=== PATIENT | female | born 1935 | race Caucasian/White ===

== ENCOUNTER 2018-02-06 02:12 | Outpatient (RCR) | payer MEDICARE, SELFPAY ==
[2018-02-06] MEDS: Normal Saline Flush 10 ML SYR IVP (10:15)
[2018-02-06 10:31] LABS: Abs Immature Grans 0.08 k/cumm (0.0-0.09); Absolute Basophil Count 0.06 k/cumm (0.0-0.2); Absolute Eosinophil Count 0.05 k/cumm (0.0-0.7); Absolute Lymphocyte Count 1.09 k/cumm (1.2-3.4); Absolute Monocyte Count 0.44 k/cumm (0.11-0.7); Absolute Neutrophil Count 10.82 k/cumm (1.2-6.7); Basophils % 0.5; Eosinophils % 0.4; HCT 41.2 % (36.0-46.0); Immature Grans % 0.6; Lymphocytes % 8.7; Mean Corp. HGB Concentration 31.6 g/dL (32.0-36.0); Mean Corpuscular Hemoglobin 28.9 pg (27.0-33.0); Mean Corpuscular Volume 91.6 fL (80-95); Mean Platelet Volume 11.1 fL (8.0-11.0); Monocytes % 3.5; Neutrophils % 86.3; Platelet Count 267 x1000/uL (130-400); White Blood Cell Count 12.54 k/cumm (4.4-10.8)
[2018-02-06 10:52] LABS: ALT 12 U/L (12-78); AST 11 U/L (15-37); Albumin 3.3 g/dL (3.4-5.0); Alkaline Phosphatase 40 U/L (46-116); Anion Gap 6.9 mmol/L (3-11); BUN 33 mg/dL (7-18); Bilirubin, Total 0.3 mg/dL (0.2-1.0); CO2 28.1 mmol/L (21.0-32.0); CREATININE 1.49 mg/dL (0.55-1.02); Calcium 9.1 mg/dL (8.5-10.1); Chloride 103 mmol/L (98-107); Estimated GFR 33.67 (mL/min/1.73m2); Glucose 111 mg/dL (70-100); Potassium 4.5 mmol/L (3.5-5.1); Sodium 138 mmol/L (136-145); T4 5.8 ug/dL (4.5-12.5); TSH 0.54 uIU/mL (0.358-3.74); Total Protein 6.7 g/dL (6.4-8.2)
== END 2018-02-14 ==
LOC: INF 02:12
PROVIDERS: PCP Family Medicine; Visit Provider Internal Medicine Medical Oncology
DX: C34.91 Malignant neoplasm of unspecified part of right bronchus or lung (principal); E03.2 Hypothyroidism due to medicaments and other exogenous substances; Z45.2 Encounter for adjustment and management of vascular access device
CPT/HCPCS: 36591; 80053; 84436; 84443; 85025

== ENCOUNTER 2018-02-27 01:55 | Outpatient (RCR) | payer MEDICARE, SELFPAY ==
[2018-02-27] MEDS: Normal Saline Flush 10 ML SYR IVP (07:35)
[2018-02-27 07:54] LABS: Abs Immature Grans 0.12 k/cumm (0.0-0.09); Absolute Eosinophil Count 0.12 k/cumm (0.0-0.7); Absolute Lymphocyte Count 3.73 k/cumm (1.2-3.4); Absolute Monocyte Count 0.85 k/cumm (0.11-0.7); Absolute Neutrophil Count 5.69 k/cumm (1.2-6.7); Basophils % 0.9; Eosinophils % 1.1; HCT 40.8 % (36.0-46.0); HGB 12.8 g/dL (12.0-15.5); Immature Grans % 1.1; Lymphocytes % 35.2; Mean Corp. HGB Concentration 31.4 g/dL (32.0-36.0); Mean Corpuscular Hemoglobin 28.8 pg (27.0-33.0); Mean Corpuscular Volume 91.9 fL (80-95); Mean Platelet Volume 10.4 fL (8.0-11.0); Neutrophils % 53.7; Platelet Count 287 x1000/uL (130-400); RBC 4.44 m/cumm (4.00-5.20); RBC Distribution Width 16.9 % (11.7-14.6); White Blood Cell Count 10.61 k/cumm (4.4-10.8)
[2018-02-27 08:13] LABS: ALT 15 U/L (12-78); AST 11 U/L (15-37); Albumin 3.3 g/dL (3.4-5.0); Alkaline Phosphatase 49 U/L (46-116); Anion Gap 6.7 mmol/L (3-11); BUN 27 mg/dL (7-18); Bilirubin, Total 0.2 mg/dL (0.2-1.0); CO2 27.3 mmol/L (21.0-32.0); CREATININE 1.51 mg/dL (0.55-1.02); Calcium 9.2 mg/dL (8.5-10.1); Chloride 105 mmol/L (98-107); Estimated GFR 33.16 (mL/min/1.73m2); Glucose 98 mg/dL (70-100); Potassium 4.6 mmol/L (3.5-5.1); Sodium 139 mmol/L (136-145); TSH 0.94 uIU/mL (0.358-3.74); Total Protein 6.4 g/dL (6.4-8.2)
== END 2018-03-16 23:59 | disposition home or self-care (01) ==
LOC: INF 01:55
PROVIDERS: PCP Family Medicine; Visit Provider Internal Medicine Medical Oncology
DX: C34.91 Malignant neoplasm of unspecified part of right bronchus or lung (principal); E03.2 Hypothyroidism due to medicaments and other exogenous substances; Z45.2 Encounter for adjustment and management of vascular access device
CPT/HCPCS: 36591; 80053; 84436; 84443; 85025

== ENCOUNTER 2018-04-10 00:54 | Outpatient (RCR) | payer MEDICARE, SELFPAY ==
[2018-03-20] MEDS: Normal Saline Flush 10 ML SYR IVP (10:40)
[2018-03-20 10:57] LABS: Absolute Basophil Count 0.06 k/cumm (0.0-0.2); Absolute Eosinophil Count 0.04 k/cumm (0.0-0.7); Absolute Lymphocyte Count 1.26 k/cumm (1.2-3.4); Absolute Monocyte Count 0.46 k/cumm (0.11-0.7); Basophils % 0.5; Eosinophils % 0.3; HCT 40.2 % (36.0-46.0); HGB 12.7 g/dL (12.0-15.5); Immature Grans % 0.8; Lymphocytes % 9.8; Mean Corp. HGB Concentration 31.6 g/dL (32.0-36.0); Mean Corpuscular Hemoglobin 29.1 pg (27.0-33.0); Monocytes % 3.6; Platelet Count 288 x1000/uL (130-400); RBC 4.37 m/cumm (4.00-5.20); RBC Distribution Width 16.5 % (11.7-14.6); White Blood Cell Count 12.86 k/cumm (4.4-10.8)
[2018-03-20 10:58] LABS: Absolute Neutrophil Count 10.93 k/cumm (1.2-6.7)
[2018-03-20 11:18] LABS: ALT 16 U/L (12-78); AST 11 U/L (15-37); Albumin 3.3 g/dL (3.4-5.0); Alkaline Phosphatase 47 U/L (46-116); Anion Gap 7.6 mmol/L (3-11); BUN 27 mg/dL (7-18); Bilirubin, Total 0.3 mg/dL (0.2-1.0); CO2 27.4 mmol/L (21.0-32.0); CREATININE 1.27 mg/dL (0.55-1.02); Chloride 103 mmol/L (98-107); Estimated GFR 40.49 (mL/min/1.73m2); Glucose 102 mg/dL (70-100); Potassium 4.9 mmol/L (3.5-5.1); Sodium 138 mmol/L (136-145); TSH 0.72 uIU/mL (0.358-3.74); Total Protein 6.5 g/dL (6.4-8.2)
[2018-03-20 11:28] LABS: T4 5.6 ug/dL (4.5-12.5)
[2018-04-10] MEDS: Normal Saline Flush 10 ML SYR IVP (11:30)
[2018-04-10 11:39] LABS: Absolute Basophil Count 0.07 k/cumm (0.0-0.2); Absolute Eosinophil Count 0.04 k/cumm (0.0-0.7); Absolute Lymphocyte Count 1.32 k/cumm (1.2-3.4); Absolute Monocyte Count 0.51 k/cumm (0.11-0.7); Basophils % 0.6; Eosinophils % 0.4; HGB 12.7 g/dL (12.0-15.5); Immature Grans % 0.9; Lymphocytes % 11.9; Mean Corp. HGB Concentration 31.8 g/dL (32.0-36.0); Mean Corpuscular Hemoglobin 29.3 pg (27.0-33.0); Mean Corpuscular Volume 92.2 fL (80-95); Monocytes % 4.6; Neutrophils % 81.6; Platelet Count 309 x1000/uL (130-400); RBC 4.34 m/cumm (4.00-5.20); RBC Distribution Width 16.4 % (11.7-14.6); White Blood Cell Count 11.13 k/cumm (4.4-10.8)
[2018-04-10 11:43] LABS: Absolute Neutrophil Count 9.08 k/cumm (1.2-6.7)
[2018-04-10 12:06] LABS: ALT 14 U/L (12-78); AST 11 U/L (15-37); Albumin 3.4 g/dL (3.4-5.0); Alkaline Phosphatase 41 U/L (46-116); Anion Gap 8.5 mmol/L (3-11); BUN 32 mg/dL (7-18); Bilirubin, Total 0.3 mg/dL (0.2-1.0); CO2 26.5 mmol/L (21.0-32.0); CREATININE 1.43 mg/dL (0.55-1.02); Chloride 103 mmol/L (98-107); Estimated GFR 35.31 (mL/min/1.73m2); Glucose 103 mg/dL (70-100); Potassium 4.7 mmol/L (3.5-5.1); Sodium 138 mmol/L (136-145); T4 6.6 ug/dL (4.5-12.5); TSH 0.49 uIU/mL (0.358-3.74); Total Protein 6.7 g/dL (6.4-8.2)
== END 2018-04-16 23:59 | disposition home or self-care (01) ==
LOC: INF 00:54
PROVIDERS: PCP Family Medicine; Visit Provider Internal Medicine Medical Oncology
DX: C34.91 Malignant neoplasm of unspecified part of right bronchus or lung (principal); E03.2 Hypothyroidism due to medicaments and other exogenous substances
CPT/HCPCS: 36591; 80053; 84436; 84443; 85025

== ENCOUNTER 2018-05-01 01:39 | Outpatient (RCR) | payer MEDICARE, SELFPAY ==
[2018-05-01] MEDS: Normal Saline Flush 10 ML SYR IVP (11:20)
[2018-05-01 11:38] LABS: Abs Immature Grans 0.09 k/cumm (0.0-0.09); Absolute Basophil Count 0.04 k/cumm (0.0-0.2); Absolute Eosinophil Count 0.01 k/cumm (0.0-0.7); Absolute Lymphocyte Count 1.01 k/cumm (1.2-3.4); Absolute Monocyte Count 0.34 k/cumm (0.11-0.7); Absolute Neutrophil Count 7.51 k/cumm (1.2-6.7); Basophils % 0.4; Eosinophils % 0.1; HCT 39.3 % (36.0-46.0); HGB 12.3 g/dL (12.0-15.5); Lymphocytes % 11.2; Mean Corp. HGB Concentration 31.3 g/dL (32.0-36.0); Mean Corpuscular Hemoglobin 29.3 pg (27.0-33.0); Mean Corpuscular Volume 93.6 fL (80-95); Monocytes % 3.8; Neutrophils % 83.5; Platelet Count 264 x1000/uL (130-400); RBC Distribution Width 16.4 % (11.7-14.6)
[2018-05-01 11:59] LABS: ALT 18 U/L (12-78); AST 15 U/L (15-37); Albumin 3.5 g/dL (3.4-5.0); Alkaline Phosphatase 41 U/L (46-116); Anion Gap 6.6 mmol/L (3-11); BUN 25 mg/dL (7-18); Bilirubin, Total 0.4 mg/dL (0.2-1.0); CO2 27.4 mmol/L (21.0-32.0); CREATININE 1.23 mg/dL (0.55-1.02); Calcium 8.8 mg/dL (8.5-10.1); Chloride 103 mmol/L (98-107); Estimated GFR 42.01 (mL/min/1.73m2); Glucose 115 mg/dL (70-100); Potassium 4.6 mmol/L (3.5-5.1); Sodium 137 mmol/L (136-145); TSH 0.48 uIU/mL (0.358-3.74); Total Protein 6.5 g/dL (6.4-8.2)
== END 2018-05-16 23:59 | disposition home or self-care (01) ==
LOC: INF 01:39
PROVIDERS: PCP Family Medicine; Visit Provider Internal Medicine Medical Oncology
DX: C34.91 Malignant neoplasm of unspecified part of right bronchus or lung (principal); E03.2 Hypothyroidism due to medicaments and other exogenous substances; Z45.2 Encounter for adjustment and management of vascular access device
CPT/HCPCS: 36591; 80053; 84443; 85025

== ENCOUNTER 2018-10-02 01:12 | Outpatient (RCR) | payer MEDICARE, SELFPAY ==
[2018-10-02] MEDS: Normal Saline Flush 10 ML SYR IVP (10:40)
[2018-10-02 12:25] LABS: Abs Immature Grans 0.06 k/cumm (0.0-0.09); Absolute Basophil Count 0.05 k/cumm (0.0-0.2); Absolute Eosinophil Count 0.12 k/cumm (0.0-0.7); Absolute Monocyte Count 0.98 k/cumm (0.11-0.7); Absolute Neutrophil Count 7.19 k/cumm (1.2-6.7); Basophils % 0.5; Eosinophils % 1.2; HCT 41.2 % (36.0-46.0); HGB 12.5 g/dL (12.0-15.5); Immature Grans % 0.6; Lymphocytes % 17.6; Mean Corp. HGB Concentration 30.3 g/dL (32.0-36.0); Mean Corpuscular Hemoglobin 26.2 pg (27.0-33.0); Mean Corpuscular Volume 86.2 fL (80-95); Mean Platelet Volume 11.2 fL (8.0-11.0); Monocytes % 9.6; Neutrophils % 70.5; Platelet Count 316 x1000/uL (130-400); RBC 4.78 m/cumm (4.00-5.20); RBC Distribution Width 17.6 % (11.7-14.6)
[2018-10-02 12:43] LABS: ALT 12 U/L (12-78); AST 10 U/L (15-37); Albumin 3.3 g/dL (3.4-5.0); Alkaline Phosphatase 51 U/L (46-116); Anion Gap 8.9 mmol/L (3-11); BUN 18 mg/dL (7-18); Bilirubin, Total 0.2 mg/dL (0.2-1.0); CO2 25.1 mmol/L (21.0-32.0); CREATININE 1.16 mg/dL (0.55-1.02); Calcium 9.2 mg/dL (8.5-10.1); Chloride 105 mmol/L (98-107); Estimated GFR 44.84 (mL/min/1.73m2); Glucose 85 mg/dL (70-100); Potassium 4.2 mmol/L (3.5-5.1); Sodium 139 mmol/L (136-145); TSH 0.09 uIU/mL (0.358-3.74); Total Protein 6.7 g/dL (6.4-8.2)
[2018-10-02 14:16] LABS: T4 7.3 ug/dL (4.5-12.5)
== END 2018-10-14 23:59 | disposition home or self-care (01) ==
LOC: INF 01:12
PROVIDERS: PCP Family Medicine; Visit Provider Internal Medicine Hematology & Oncology
DX: C34.91 Malignant neoplasm of unspecified part of right bronchus or lung (principal); E03.2 Hypothyroidism due to medicaments and other exogenous substances; Z45.2 Encounter for adjustment and management of vascular access device
CPT/HCPCS: 36591; 80053; 84436; 84443; 85025

== ENCOUNTER 2018-11-13 01:51 | Outpatient (RCR) | payer MEDICARE, SELFPAY ==
[2018-10-23] MEDS: Normal Saline Flush 10 ML SYR IVP (12:50)
[2018-10-23 13:19] LABS: Abs Immature Grans 0.06 k/cumm (0.0-0.09); Absolute Basophil Count 0.06 k/cumm (0.0-0.2); Absolute Eosinophil Count 0.06 k/cumm (0.0-0.7); Absolute Monocyte Count 0.44 k/cumm (0.11-0.7); Basophils % 0.5; Eosinophils % 0.5; HCT 41.1 % (36.0-46.0); HGB 12.7 g/dL (12.0-15.5); Immature Grans % 0.5; Lymphocytes % 9.3; Mean Corp. HGB Concentration 30.9 g/dL (32.0-36.0); Mean Corpuscular Hemoglobin 26.5 pg (27.0-33.0); Mean Corpuscular Volume 85.6 fL (80-95); Mean Platelet Volume 10.7 fL (8.0-11.0); Monocytes % 3.7; Neutrophils % 85.5; Platelet Count 340 x1000/uL (130-400); RBC Distribution Width 17.7 % (11.7-14.6)
[2018-10-23 13:20] LABS: Absolute Lymphocyte Count 1.12 k/cumm (1.2-3.4); Absolute Neutrophil Count 10.26 k/cumm (1.2-6.7)
[2018-10-23 13:43] LABS: ALT 15 U/L (12-78); AST 11 U/L (15-37); Albumin 3.4 g/dL (3.4-5.0); Alkaline Phosphatase 44 U/L (46-116); Anion Gap 9.1 mmol/L (3-11); BUN 26 mg/dL (7-18); Bilirubin, Total 0.2 mg/dL (0.2-1.0); CO2 23.9 mmol/L (21.0-32.0); CREATININE 1.32 mg/dL (0.55-1.02); Calcium 9.1 mg/dL (8.5-10.1); Chloride 104 mmol/L (98-107); Estimated GFR 38.63 (mL/min/1.73m2); Glucose 115 mg/dL (70-100); Potassium 4.6 mmol/L (3.5-5.1); Sodium 137 mmol/L (136-145); Total Protein 6.9 g/dL (6.4-8.2)
[2018-11-13 09:54] LABS: Abs Immature Grans 0.04 k/cumm (0.0-0.09); Absolute Basophil Count 0.06 k/cumm (0.0-0.2); Absolute Eosinophil Count 0.17 k/cumm (0.0-0.7); Absolute Lymphocyte Count 1.92 k/cumm (1.2-3.4); Absolute Monocyte Count 0.98 k/cumm (0.11-0.7); Absolute Neutrophil Count 6.42 k/cumm (1.2-6.7); Basophils % 0.6; Eosinophils % 1.8; HCT 39.9 % (36.0-46.0); HGB 12.5 g/dL (12.0-15.5); Immature Grans % 0.4; Mean Corp. HGB Concentration 31.3 g/dL (32.0-36.0); Mean Corpuscular Hemoglobin 27.1 pg (27.0-33.0); Mean Corpuscular Volume 86.4 fL (80-95); Mean Platelet Volume 10.7 fL (8.0-11.0); Monocytes % 10.2; Platelet Count 299 x1000/uL (130-400); RBC 4.62 m/cumm (4.00-5.20); RBC Distribution Width 16.9 % (11.7-14.6); White Blood Cell Count 9.59 k/cumm (4.4-10.8)
[2018-11-13] MEDS: Normal Saline Flush 10 ML SYR IVP (09:57)
[2018-11-13 10:13] LABS: ALT 10 U/L (12-78); AST 8 U/L (15-37); Albumin 3.2 g/dL (3.4-5.0); Alkaline Phosphatase 43 U/L (46-116); Anion Gap 8.8 mmol/L (3-11); BUN 25 mg/dL (7-18); Bilirubin, Total 0.2 mg/dL (0.2-1.0); CO2 26.2 mmol/L (21.0-32.0); CREATININE 1.18 mg/dL (0.55-1.02); Calcium 9.1 mg/dL (8.5-10.1); Chloride 104 mmol/L (98-107); Estimated GFR 43.96 (mL/min/1.73m2); Glucose 104 mg/dL (70-100); Potassium 4.2 mmol/L (3.5-5.1); Sodium 139 mmol/L (136-145); Total Protein 6.6 g/dL (6.4-8.2)
== END 2018-11-14 23:59 | disposition home or self-care (01) ==
LOC: INF 01:51
PROVIDERS: PCP Family Medicine; Visit Provider Internal Medicine Hematology & Oncology
DX: C34.91 Malignant neoplasm of unspecified part of right bronchus or lung (principal); Z45.2 Encounter for adjustment and management of vascular access device
CPT/HCPCS: 36591; 80053; 85025

== ENCOUNTER 2018-12-04 00:53 | Outpatient (RCR) | payer MEDICARE, SELFPAY ==
[2018-12-04] MEDS: Normal Saline Flush 10 ML SYR IVP (08:05)
[2018-12-04 08:16] LABS: Abs Immature Grans 0.03 k/cumm (0.0-0.09); Absolute Basophil Count 0.09 k/cumm (0.0-0.2); Absolute Eosinophil Count 0.27 k/cumm (0.0-0.7); Absolute Lymphocyte Count 1.74 k/cumm (1.2-3.4); Absolute Monocyte Count 0.79 k/cumm (0.11-0.7); Absolute Neutrophil Count 8.65 k/cumm (1.2-6.7); Basophils % 0.8; Eosinophils % 2.3; HCT 39.6 % (36.0-46.0); HGB 12.1 g/dL (12.0-15.5); Immature Grans % 0.3; Mean Corp. HGB Concentration 30.6 g/dL (32.0-36.0); Mean Corpuscular Hemoglobin 26.6 pg (27.0-33.0); Mean Platelet Volume 10.8 fL (8.0-11.0); Monocytes % 6.8; Neutrophils % 74.8; Platelet Count 285 x1000/uL (130-400); RBC 4.55 m/cumm (4.00-5.20); RBC Distribution Width 15.9 % (11.7-14.6); White Blood Cell Count 11.57 k/cumm (4.4-10.8)
[2018-12-04 08:39] LABS: ALT 13 U/L (12-78); AST 9 U/L (15-37); Albumin 3.1 g/dL (3.4-5.0); Alkaline Phosphatase 47 U/L (46-116); Anion Gap 8.4 mmol/L (3-11); BUN 20 mg/dL (7-18); Bilirubin, Total 0.3 mg/dL (0.2-1.0); CO2 26.6 mmol/L (21.0-32.0); CREATININE 1.25 mg/dL (0.55-1.02); Calcium 8.6 mg/dL (8.5-10.1); Chloride 108 mmol/L (98-107); Estimated GFR 41.13 (mL/min/1.73m2); Glucose 102 mg/dL (70-100); Potassium 4.4 mmol/L (3.5-5.1); Sodium 143 mmol/L (136-145); T4 5.9 ug/dL (4.5-12.5); TSH 0.08 uIU/mL (0.358-3.74); Total Protein 6.2 g/dL (6.4-8.2)
== END 2018-12-14 23:59 | disposition home or self-care (01) ==
LOC: INF 00:53
PROVIDERS: PCP Family Medicine; Visit Provider Internal Medicine Hematology & Oncology
DX: C34.91 Malignant neoplasm of unspecified part of right bronchus or lung (principal); E03.2 Hypothyroidism due to medicaments and other exogenous substances; Z45.2 Encounter for adjustment and management of vascular access device
CPT/HCPCS: 36591; 80053; 84436; 84443; 85025

== ENCOUNTER 2019-01-08 01:45 | Outpatient (RCR) | payer MEDICARE, SELFPAY ==
[2019-01-08] MEDS: Normal Saline Flush 10 ML SYR IVP (08:13)
[2019-01-08 08:30] LABS: Abs Immature Grans 0.04 k/cumm (0.0-0.09); Absolute Basophil Count 0.09 k/cumm (0.0-0.2); Absolute Eosinophil Count 0.32 k/cumm (0.0-0.7); Absolute Lymphocyte Count 1.75 k/cumm (1.2-3.4); Absolute Monocyte Count 0.83 k/cumm (0.11-0.7); Absolute Neutrophil Count 6.26 k/cumm (1.2-6.7); Eosinophils % 3.4; HCT 40.2 % (36.0-46.0); HGB 12.3 g/dL (12.0-15.5); Immature Grans % 0.4; Lymphocytes % 18.8; Mean Corp. HGB Concentration 30.6 g/dL (32.0-36.0); Mean Corpuscular Hemoglobin 26.6 pg (27.0-33.0); Mean Corpuscular Volume 86.8 fL (80-95); Monocytes % 8.9; Neutrophils % 67.5; Platelet Count 288 x1000/uL (130-400); RBC 4.63 m/cumm (4.00-5.20); RBC Distribution Width 16.4 % (11.7-14.6); White Blood Cell Count 9.29 k/cumm (4.4-10.8)
[2019-01-08 08:51] LABS: ALT 13 U/L (12-78); AST 5 U/L (15-37); Alkaline Phosphatase 46 U/L (46-116); Anion Gap 11.1 mmol/L (3-11); BUN 17 mg/dL (7-18); Bilirubin, Total 0.2 mg/dL (0.2-1.0); CO2 23.9 mmol/L (21.0-32.0); CREATININE 1.05 mg/dL (0.55-1.02); Chloride 108 mmol/L (98-107); Glucose 95 mg/dL (70-100); Potassium 4.1 mmol/L (3.5-5.1); Sodium 143 mmol/L (136-145); TSH 0.03 uIU/mL (0.36-3.74); Total Protein 6.3 g/dL (6.4-8.2)
[2019-01-08 09:03] LABS: T4 5.8 ug/dL (4.5-12.5)
== END 2019-01-14 23:59 | disposition home or self-care (01) ==
LOC: INF 01:45
PROVIDERS: PCP Family Medicine; Visit Provider Internal Medicine Hematology & Oncology
DX: C34.91 Malignant neoplasm of unspecified part of right bronchus or lung (principal); E03.2 Hypothyroidism due to medicaments and other exogenous substances; Z45.2 Encounter for adjustment and management of vascular access device
CPT/HCPCS: 36591; 80053; 84436; 84443; 85025

== ENCOUNTER 2019-01-29 00:30 | Outpatient (RCR) | payer MEDICARE, SELFPAY ==
[2019-01-29 08:25] LABS: Abs Immature Grans 0.05 k/cumm (0.0-0.09); Absolute Basophil Count 0.08 k/cumm (0.0-0.2); Absolute Eosinophil Count 0.28 k/cumm (0.0-0.7); Absolute Lymphocyte Count 1.59 k/cumm (1.2-3.4); Absolute Monocyte Count 0.85 k/cumm (0.11-0.7); Absolute Neutrophil Count 7.93 k/cumm (1.2-6.7); Basophils % 0.7; Eosinophils % 2.6; HCT 40.8 % (36.0-46.0); HGB 12.7 g/dL (12.0-15.5); Immature Grans % 0.5; Lymphocytes % 14.7; Mean Corp. HGB Concentration 31.1 g/dL (32.0-36.0); Mean Corpuscular Hemoglobin 26.9 pg (27.0-33.0); Mean Corpuscular Volume 86.4 fL (80-95); Mean Platelet Volume 10.5 fL (8.0-11.0); Monocytes % 7.9; Neutrophils % 73.6; Platelet Count 280 x1000/uL (130-400); RBC 4.72 m/cumm (4.00-5.20); RBC Distribution Width 17.3 % (11.7-14.6); White Blood Cell Count 10.78 k/cumm (4.4-10.8)
[2019-01-29] MEDS: Normal Saline Flush 10 ML SYR IVP (08:26)
[2019-01-29 08:49] LABS: ALT 11 U/L (12-78); AST 10 U/L (15-37); Albumin 3.2 g/dL (3.4-5.0); Alkaline Phosphatase 46 U/L (46-116); Anion Gap 9.6 mmol/L (3-11); BUN 24 mg/dL (7-18); Bilirubin, Total 0.3 mg/dL (0.2-1.0); CO2 25.4 mmol/L (21.0-32.0); Calcium 9.1 mg/dL (8.5-10.1); Chloride 106 mmol/L (98-107); Estimated GFR 39.31 (mL/min/1.73m2); Glucose 91 mg/dL (70-100); Potassium 4.3 mmol/L (3.5-5.1); Sodium 141 mmol/L (136-145); T4 7.9 ug/dL (4.5-12.5); TSH 0.06 uIU/mL (0.36-3.74); Total Protein 6.7 g/dL (6.4-8.2)
== END 2019-02-14 23:59 | disposition home or self-care (01) ==
LOC: INF 00:30
PROVIDERS: PCP Family Medicine; Visit Provider Internal Medicine Hematology & Oncology
DX: C34.91 Malignant neoplasm of unspecified part of right bronchus or lung (principal); E03.2 Hypothyroidism due to medicaments and other exogenous substances; Z45.2 Encounter for adjustment and management of vascular access device
CPT/HCPCS: 36591; 80053; 84436; 84443; 85025

== ENCOUNTER 2019-03-12 02:07 | Outpatient (RCR) | payer MEDICARE, SELFPAY ==
[2019-02-19] MEDS: Normal Saline Flush 10 ML SYR IVP (08:00)
[2019-02-19 08:20] LABS: Abs Immature Grans 0.03 k/cumm (0.0-0.09); Absolute Eosinophil Count 0.34 k/cumm (0.0-0.7); Absolute Lymphocyte Count 1.82 k/cumm (1.2-3.4); Absolute Monocyte Count 0.89 k/cumm (0.11-0.7); Absolute Neutrophil Count 6.15 k/cumm (1.2-6.7); Basophils % 1.1; Eosinophils % 3.6; HCT 40.5 % (36.0-46.0); HGB 12.7 g/dL (12.0-15.5); Immature Grans % 0.3; Lymphocytes % 19.5; Mean Corp. HGB Concentration 31.4 g/dL (32.0-36.0); Mean Corpuscular Hemoglobin 27.6 pg (27.0-33.0); Mean Platelet Volume 10.9 fL (8.0-11.0); Monocytes % 9.5; Platelet Count 311 x1000/uL (130-400); RBC Distribution Width 17.8 % (11.7-14.6); White Blood Cell Count 9.33 k/cumm (4.4-10.8)
[2019-02-19 08:44] LABS: ALT 13 U/L (14-59); AST 12 U/L (15-37); Albumin 3.2 g/dL (3.4-5.0); Alkaline Phosphatase 55 U/L (46-116); Anion Gap 6.1 mmol/L (3-11); BUN 21 mg/dL (7-18); Bilirubin, Total 0.2 mg/dL (0.2-1.0); CO2 25.9 mmol/L (21.0-32.0); CREATININE 1.15 mg/dL (0.55-1.02); Chloride 108 mmol/L (98-107); Estimated GFR 45.29 (mL/min/1.73m2); Glucose 74 mg/dL (70-100); Potassium 4.2 mmol/L (3.5-5.1); Sodium 140 mmol/L (136-145); T4 6.5 ug/dL (4.5-12.5); TSH 0.19 uIU/mL (0.36-3.74); Total Protein 6.7 g/dL (6.4-8.2)
[2019-03-12] MEDS: Normal Saline Flush 10 ML SYR IVP (08:41)
[2019-03-12 09:03] LABS: Abs Immature Grans 0.03 k/cumm (0.0-0.09); Absolute Basophil Count 0.08 k/cumm (0.0-0.2); Absolute Eosinophil Count 0.35 k/cumm (0.0-0.7); Absolute Lymphocyte Count 1.44 k/cumm (1.2-3.4); Absolute Monocyte Count 0.75 k/cumm (0.11-0.7); Absolute Neutrophil Count 5.86 k/cumm (1.2-6.7); Basophils % 0.9; Eosinophils % 4.1; HCT 39.9 % (36.0-46.0); HGB 12.6 g/dL (12.0-15.5); Immature Grans % 0.4; Lymphocytes % 16.9; Mean Corp. HGB Concentration 31.6 g/dL (32.0-36.0); Mean Corpuscular Hemoglobin 27.6 pg (27.0-33.0); Mean Corpuscular Volume 87.3 fL (80-95); Mean Platelet Volume 10.7 fL (8.0-11.0); Monocytes % 8.8; Neutrophils % 68.9; Platelet Count 295 x1000/uL (130-400); RBC 4.57 m/cumm (4.00-5.20); RBC Distribution Width 17.6 % (11.7-14.6); White Blood Cell Count 8.51 k/cumm (4.4-10.8)
[2019-03-12 09:33] LABS: ALT 16 U/L (14-59); AST 9 U/L (15-37); Albumin 3.2 g/dL (3.4-5.0); Alkaline Phosphatase 47 U/L (46-116); Anion Gap 7.1 mmol/L (3-11); BUN 21 mg/dL (7-18); Bilirubin, Total 0.3 mg/dL (0.2-1.0); CO2 25.9 mmol/L (21.0-32.0); CREATININE 1.27 mg/dL (0.55-1.02); Calcium 9.1 mg/dL (8.5-10.1); Chloride 105 mmol/L (98-107); Estimated GFR 40.39 (mL/min/1.73m2); Glucose 98 mg/dL (70-100); Potassium 4.2 mmol/L (3.5-5.1); Sodium 138 mmol/L (136-145); TSH 1.34 uIU/mL (0.36-3.74); Total Protein 6.7 g/dL (6.4-8.2)
== END 2019-03-16 23:59 | disposition home or self-care (01) ==
LOC: INF 02:07
PROVIDERS: PCP Family Medicine; Visit Provider Internal Medicine Hematology & Oncology
DX: C34.91 Malignant neoplasm of unspecified part of right bronchus or lung (principal); E03.2 Hypothyroidism due to medicaments and other exogenous substances; Z45.2 Encounter for adjustment and management of vascular access device
CPT/HCPCS: 36591; 80053; 84436; 84443; 85025

== ENCOUNTER 2019-04-02 00:52 | Outpatient (RCR) | payer MEDICARE, SELFPAY ==
[2019-04-02] MEDS: Normal Saline Flush 10 ML SYR IVP (08:00)
[2019-04-02 08:24] LABS: Abs Immature Grans 0.03 k/cumm (0.0-0.09); Absolute Basophil Count 0.06 k/cumm (0.0-0.2); Absolute Eosinophil Count 0.14 k/cumm (0.0-0.7); Absolute Lymphocyte Count 1.41 k/cumm (1.2-3.4); Absolute Monocyte Count 0.76 k/cumm (0.11-0.7); Basophils % 0.6; Eosinophils % 1.5; HCT 40.3 % (36.0-46.0); HGB 12.4 g/dL (12.0-15.5); Immature Grans % 0.3; Lymphocytes % 14.7; Mean Corp. HGB Concentration 30.8 g/dL (32.0-36.0); Mean Corpuscular Hemoglobin 27.3 pg (27.0-33.0); Mean Corpuscular Volume 88.6 fL (80-95); Mean Platelet Volume 10.7 fL (8.0-11.0); Monocytes % 7.9; Platelet Count 323 x1000/uL (130-400); RBC 4.55 m/cumm (4.00-5.20); RBC Distribution Width 16.9 % (11.7-14.6)
[2019-04-02 08:38] LABS: ALT 11 U/L (14-59); AST 7 U/L (15-37); Albumin 3.2 g/dL (3.4-5.0); Alkaline Phosphatase 51 U/L (46-116); Anion Gap 9.1 mmol/L (3-11); BUN 23 mg/dL (7-18); Bilirubin, Total 0.2 mg/dL (0.2-1.0); CO2 25.9 mmol/L (21.0-32.0); CREATININE 1.29 mg/dL (0.55-1.02); Calcium 9.8 mg/dL (8.5-10.1); Chloride 107 mmol/L (98-107); Estimated GFR 39.66 (mL/min/1.73m2); Glucose 137 mg/dL (70-100); Potassium 4.2 mmol/L (3.5-5.1); Sodium 142 mmol/L (136-145); T4 5.9 ug/dL (4.5-12.5); TSH 0.88 uIU/mL (0.36-3.74); Total Protein 6.6 g/dL (6.4-8.2)
== END 2019-04-16 23:59 | disposition home or self-care (01) ==
LOC: INF 00:52
PROVIDERS: PCP Family Medicine; Visit Provider Internal Medicine Hematology & Oncology
DX: E03.2 Hypothyroidism due to medicaments and other exogenous substances (principal); Z45.2 Encounter for adjustment and management of vascular access device
CPT/HCPCS: 36591; 80053; 84436; 84443; 85025

== ENCOUNTER 2019-04-23 03:14 | Outpatient (RCR) | payer MEDICARE, SELFPAY ==
[2019-04-23 08:19] LABS: Abs Immature Grans 0.06 k/cumm (0.0-0.09); Absolute Basophil Count 0.14 k/cumm (0.0-0.2); Absolute Lymphocyte Count 1.99 k/cumm (1.2-3.4); Absolute Monocyte Count 0.86 k/cumm (0.11-0.7); Absolute Neutrophil Count 5.34 k/cumm (1.2-6.7); Basophils % 1.6; Eosinophils % 3.5; HGB 12.3 g/dL (12.0-15.5); Immature Grans % 0.7; Lymphocytes % 22.9; Mean Corp. HGB Concentration 30.8 g/dL (32.0-36.0); Mean Corpuscular Hemoglobin 27.3 pg (27.0-33.0); Mean Corpuscular Volume 88.7 fL (80-95); Mean Platelet Volume 10.6 fL (8.0-11.0); Monocytes % 9.9; Neutrophils % 61.4; Platelet Count 381 x1000/uL (130-400); RBC 4.51 m/cumm (4.00-5.20); RBC Distribution Width 16.4 % (11.7-14.6); White Blood Cell Count 8.69 k/cumm (4.4-10.8)
[2019-04-23] MEDS: Normal Saline Flush 10 ML SYR IVP (08:32)
[2019-04-23 08:58] LABS: ALT 16 U/L (14-59); AST 11 U/L (15-37); Albumin 3.3 g/dL (3.4-5.0); Alkaline Phosphatase 44 U/L (46-116); BUN 31 mg/dL (7-18); Bilirubin, Total 0.3 mg/dL (0.2-1.0); CREATININE 1.32 mg/dL (0.55-1.02); Chloride 106 mmol/L (98-107); Estimated GFR 38.63 (mL/min/1.73m2); Glucose 68 mg/dL (70-100); Potassium 4.2 mmol/L (3.5-5.1); Sodium 142 mmol/L (136-145); TSH 2.01 uIU/mL (0.36-3.74); Total Protein 6.7 g/dL (6.4-8.2)
[2019-04-23 09:11] LABS: T4 7.8 ug/dL (4.5-12.5)
== END 2019-05-16 23:59 | disposition home or self-care (01) ==
LOC: INF 03:14
PROVIDERS: PCP Family Medicine; Visit Provider Internal Medicine Hematology & Oncology
DX: C34.91 Malignant neoplasm of unspecified part of right bronchus or lung (principal); E03.2 Hypothyroidism due to medicaments and other exogenous substances; Z45.2 Encounter for adjustment and management of vascular access device
CPT/HCPCS: 36591; 80053; 84436; 84443; 85025

== ENCOUNTER 2019-09-17 03:08 | Outpatient (RCR) | payer MEDICARE, SELFPAY | END 2019-10-15 23:59 | disposition home or self-care (01) | LOC: INF 03:08 | PROVIDERS: PCP Family Medicine; Visit Provider Internal Medicine Hematology & Oncology | DX: R69 Illness, unspecified (principal) ==

== ENCOUNTER 2020-01-14 02:03 | Outpatient (RCR) | payer MEDICARE, SELFPAY ==
[2020-01-14] MEDS: Normal Saline Flush 10 ML SYR IVP (11:40)
[2020-01-14 11:58] LABS: Abs Immature Grans 0.06 10^3/uL (0.0-0.06); Absolute Basophil Count 0.14 10^3/uL (0.0-0.2); Absolute Eosinophil Count 0.37 10^3/uL (0.0-0.7); Absolute Lymphocyte Count 1.78 10^3/uL (1.2-3.4); Absolute Monocyte Count 0.74 10^3/uL (0.1-0.8); Absolute Neutrophil Count 6.44 10^3/uL (1.2-6.7); Basophils % 1.5; Eosinophils % 3.9; HCT 43.3 % (36.0-46.0); HGB 13.4 g/dL (11.2-15.7); Immature Grans % 0.6; Lymphocytes % 18.7; MCH 27.5 pg (27.0-33.0); MCHC 30.9 % (32.0-36.0); MCV 88.7 fL (80-95); MPV 11.7 fL (8.0-11.0); Monocytes % 7.8; Neutrophils % 67.5; Platelet Count 164 10^3/uL (130-400); RBC 4.88 10^6/uL (3.93-5.22); RDW 15.7 % (11.7-14.6); RDW-SD 50.9 fL; WBC 9.53 10^3/uL (4.4-10.8)
[2020-01-14 12:16] LABS: ALT 11 U/L (14-59); AST 11 U/L (15-37); Albumin 3.5 g/dL (3.4-5.0); Alkaline Phosphatase 41 U/L (46-116); Anion Gap 8.2 mmol/L (3-11); BUN 20 mg/dL (7-18); Bilirubin, Total 0.4 mg/dL (0.2-1.0); CO2 26.8 mmol/L (21.0-32.0); CREATININE 1.28 mg/dL (0.55-1.02); Calcium 9.2 mg/dL (8.5-10.1); Chloride 107 mmol/L (98-107); Estimated GFR 39.92 (mL/min/1.73m2); Glucose 106 mg/dL (74-106); Potassium 4.1 mmol/L (3.5-5.1); Sodium 142 mmol/L (136-145); TSH 1.12 uIU/mL (0.36-3.74); Total Protein 6.9 g/dL (6.4-8.2)
== END 2020-01-15 23:59 | disposition home or self-care (01) ==
LOC: INF 02:03
PROVIDERS: PCP Family Medicine; Visit Provider Internal Medicine Hematology & Oncology
DX: C34.91 Malignant neoplasm of unspecified part of right bronchus or lung (principal); Z45.2 Encounter for adjustment and management of vascular access device
CPT/HCPCS: 36591; 80053; 84439; 84443; 85025

== ENCOUNTER 2020-04-07 03:24 | Outpatient (RCR) | payer MEDICARE, SELFPAY ==
[2020-04-07] MEDS: Normal Saline Flush 10 ML SYR IVP (11:02)
[2020-04-07 11:09] LABS: Abs Immature Grans 0.07 10^3/uL (0.0-0.06); Absolute Basophil Count 0.12 10^3/uL (0.0-0.2); Absolute Lymphocyte Count 1.64 10^3/uL (1.2-3.4); Absolute Monocyte Count 0.83 10^3/uL (0.1-0.8); Absolute Neutrophil Count 7.91 10^3/uL (1.2-6.7); Basophils % 1.1; Eosinophils % 1.9; HCT 39.9 % (36.0-46.0); HGB 12.4 g/dL (11.2-15.7); Immature Grans % 0.6; Lymphocytes % 15.2; MCH 26.9 pg (27.0-33.0); MCHC 31.1 % (32.0-36.0); MCV 86.6 fL (80-95); MPV 10.8 fL (8.0-11.0); Monocytes % 7.7; Neutrophils % 73.5; Nucleated RBC 0 %; Platelet Count 315 10^3/uL (130-400); RBC 4.61 10^6/uL (3.93-5.22); RDW 16.3 % (11.7-14.6); RDW-SD 51.3 fL; WBC 10.77 10^3/uL (4.4-10.8)
[2020-04-07 12:06] LABS: ALT 7 U/L (14-59); AST 9 U/L (15-37); Albumin 3.5 g/dL (3.4-5.0); Alkaline Phosphatase 48 U/L (46-116); BUN 28 mg/dL (7-18); Bilirubin, Total 0.4 mg/dL (0.2-1.0); CREATININE 1.37 mg/dL (0.55-1.02); Calcium 9.5 mg/dL (8.5-10.1); Chloride 104 mmol/L (98-107); Estimated GFR 36.91 (mL/min/1.73m2); Glucose 100 mg/dL (74-106); Potassium 4.1 mmol/L (3.5-5.1); Sodium 137 mmol/L (136-145); TSH 2.36 uIU/mL (0.36-3.74); Total Protein 6.8 g/dL (6.4-8.2)
== END 2020-04-16 23:59 | disposition home or self-care (01) ==
LOC: INF 03:24
PROVIDERS: PCP Family Medicine; Visit Provider Internal Medicine Hematology & Oncology
DX: E03.2 Hypothyroidism due to medicaments and other exogenous substances (principal); C34.91 Malignant neoplasm of unspecified part of right bronchus or lung; Z45.2 Encounter for adjustment and management of vascular access device
CPT/HCPCS: 36591; 80053; 84443; 85025